=== PATIENT | male | born 1955 | race Caucasian/White ===

== ENCOUNTER 2019-03-14 23:26 | Inpatient (IN) | payer MEDICARE ==
--- NOTE | 2019-03-15 00:33 | ED Physician Chart ---
ED Chief Complaint/HPI - Patient Information Date Seen:: 03/15/19 Time Seen:: 00:27 Chief Complaint:: insomnia History of Present Illness:: 63 yr old male from [facility] who does not like his retirement becuse the tian with him in the room is noisy and he can not get enough sleep Vitals:: Vital Signs - 8 hr 03/14/19 23:31 Temp 97 F HR 108 RR 18 BP 132/84 O2 Sat % 93 ED Review of Systems - Review of Systems General/Constitutional: No fever, No chills, No weight loss, No weakness, No diaphoresis, No edema, No loss of appetite Skin: No skin lesions, No rash, No bruising Head: No headache, No light-headedness Eyes: No loss of vision, No pain, No diplopia ENT: No earache, No nasal drainage, No sore throat, No tinnitus Neck: No neck pain, No swelling, No thyromegaly, No stiffness, No mass noted Cardio Vascular: No chest pain, No palpitations, No PND, No orthopnea, No edema Pulmonary: No SOB, No cough, No sputum, No wheezing GI: No nausea, No vomiting, No diarrhea, No pain, No melena, No hematochezia, No constipation, No hematemesis G/U: No dysuria, No frequency, No hematuria Musculoskeletal: No bone or joint pain, No back pain, No muscle pain Endocrine: No polyuria, No polydipsia Psychiatric: No prior psych history, No depression, No anxiety, No suicidal ideation Hematopoietic: No bruising, No lymphadenopathy Allergic/Immuno: No urticaria, No angioedema Neurological: No syncope, No focal symptoms, No weakness, No paresthesia, No headache, No seizure, No dizziness, No confusion, No vertigo ED Past Medical History - Past Medical History Past Medical History: HTN, Asthma/COPD, Other (cirrhosiscopd etoh and drug abuse ) ED Physical Exam - Physical Examination General/Constitutional: Awake, Well-developed, well-nourished, Alert, No distress, GCS 15, Non-toxic appearing, Ambulatory Head: Atraumatic Eyes: Lids, conjuctiva normal, PERRL, EOMI Skin: Nl inspection, No rash, No skin lesions, No ecchymosis, Well hydrated, No lymphadenopathy ENMT: External ears, nose nl, Nasal exam nl, Lips, teeth, gums nl Neck: Nontender, Full ROM w/o pain, No JVD, No nuchal rigidity, No bruit, No mass, No stridor Respiratory: Nl effort/Exclusion, Clear to Auscultation, No Wheeze/Rhonchi/Rales Cardio Vascular: RRR, No murmur, gallop, rubs, NL S1 S2 GI: No tenderness/rebounding/guarding, No organomegaly, No hernia, Normal BS's, Nondistended, No mass/bruits, No McBurney tenderness : No CVA tenderness Extremities: No tenderness or effusion, Full ROM, normal strength in all extremities, No edema, Normal digits & nails Neuro/Psych: Alert/oriented, DTR's symmetric, Normal sensory exam, Normal motor strength, Judgement/insight normal, Mood normal, Normal gait, No focal deficits Misc: Normal back, No paraspinal tenderness ED Labs/Radiology/EKG Results - Lab Results Results: retirement incompatibility ED Assessment - Assessment General Assessment: nsomnia agitation ED Septic Shock - . Is Septic Shock (SBP<90, OR Lactate>4 mmol\L) present?: No - <6hrs of presentation: Vital Signs: Vital Signs - 8 hr 03/14/19 23:31 Temp 97 F HR 108 RR 18 BP 132/84 O2 Sat % 93 ED Reassessment (Disposition) - Reassessment Reassessment:: insomnia agitation - Diagnosis Diagnosis:: as above - Patient Disposition Discharge/Transfer:: Acute Care w/in this hosp Condition at Disposition:: Stable
[2019-03-15 01:08] LABS: % LYMPHOCYTES 11.1 % (20.0-50.0); % MONOCYTES 8.5 % (2.0-10.0); % NEUTROPHILS 78.4 % (40.0-80.0); EOSINOPHILE ABSOLUTE 0.1 Th/cmm (0.1-0.4); HEMATOCRIT 42.5 % (41.0-60); HEMOGLOBIN 14.6 gm/dL (12-16); LYMPHOCYTE ABSOLUTE 0.5 Th/cmm (1.5-3.0); MEAN CELL VOLUME 88.7 fl (80-99); MEAN CORPUSCULAR HEMOGLOBIN 30.4 pg (26.0-30.0); MEAN CORPUSCULAR HGB CONC 34.3 pg (28.0-36.0); MONOCYTE ABSOLUTE 0.4 Th/cmm (0.3-1.0); NEUTROPHILE ABSOLUTE 3.9 Th/cmm (1.8-8.0); RED BLOOD COUNT 4.79 Mil/cmm (4.30-5.70); RED CELL DISTRIBUTION WIDTH 13.7 % (11.5-20.0); WHITE BLOOD COUNT 4.9 Th/cmm (4.8-10.8)
[2019-03-15 01:24] LABS: BUN - UREA NITROGEN 13 mg/dL (7-25); CALCIUM SERUM 9.7 mg/dL (8.6-10.3); CARBON DIOXIDE 29.1 mEq/L (21.0-31.0); CHLORIDE 100 mEq/L (98-107); CREATININE - SERUM 0.7 mg/dL (0.7-1.3); GFR AFRICAN-AMERICAN > 60.0 ml/min (>90); GFR NON AFRICAN-AMERICAN > 60.0 ml/min; GLUCOSE 166 mg/dL (70-105); POTASSIUM SERUM 4.1 mEq/L (3.5-5.1); SODIUM SERUM 133 mEq/L (136-145)
[2019-03-15 01:32] LABS: PLATELET COUNT 42 Th/cmm (150-400)
[2019-03-15] MEDS ORDERED: Albuterol Nebulizer 2.5mg/3mL HHN PRN (02:32)
[2019-03-15 03:27] VITALS: BP 131/81
--- NOTE | 2019-03-15 18:10 | Consultation ---
DATE OF CONSULTATION: 03/15/2019 HEMATOLOGY/ ONCOLOGY CONSULTATION REFERRING PHYSICIAN: Dr. Del Toro. REASON FOR CONSULTATION: Thrombocytopenia. HISTORY OF PRESENT ILLNESS: The patient is a 63-year-old male who resides in a nursing facility. He was admitted and found to have low platelet count 42,000, therefore, I was asked to evaluate. There are no old records in the hospital to compare with from the past. PAST MEDICAL HISTORY: Hypertension, COPD, asthma, liver cirrhosis and alcohol abuse. PAST SURGICAL HISTORY: Cataract surgery. MEDICATIONS: Albuterol, Lotensin, lithium, quetiapine and Zoloft. PHYSICAL EXAMINATION: GENERAL: The patient is awake, conversing and cooperative. VITAL SIGNS: Temperature 98 and blood pressure 120/71. HEENT: Atraumatic. NECK: Supple. CHEST: Clear. ABDOMEN: Obese, soft, no organomegaly or ascites. EXTREMITIES: No edema. NERVOUS SYSTEM: Moves four extremities. LABORATORY DATA: Creatinine 0.7. Liver functions are not available. White count is 4.9, platelets 42 and hemoglobin 14.6. ASSESSMENT: Thrombocytopenia of unknown duration. Based on the patient's history, this may be secondary to cirrhosis or splenomegaly. I will obtain abdominal ultrasound. I will obtain liver functions and follow the platelet count and coagulation panel. No need for transfusion since there is no evidence of bleeding. Thank you Dr. Del Toro for the opportunity to participate in the care of this interesting case. JOB# [id number]
--- NOTE | 2019-03-15 18:47 | History & Physical ---
ADMIT DATE: 03/15/2019 CHIEF COMPLAINT: Insomnia. HISTORY OF PRESENT ILLNESS: This is a 63-year-old male who is admitted to the med-surg unit with a 1-day history of increase of weakness and thrombocytopenia. The patient denies any fevers, chills, night sweats or weight loss at home. PAST MEDICAL HISTORY: Hypertension, COPD, cirrhosis, ETOH, drug abuse. SOCIAL HISTORY: The patient is an alcoholic and history of drug abuse. PAST SURGICAL HISTORY: The patient states he does not remember. REVIEW OF SYSTEMS: GENERAL: Denies any fever and chills. Complains of weakness. CARDIOVASCULAR: Denies chest pain. RESPIRATORY: Denies shortness of breath. GASTROINTESTINAL: Denies nausea, vomiting, abdominal pain. GENITOURINARY: Denies increased frequency or dysuria. NEUROLOGIC: No headaches, seizures or syncope. All systems reviewed and negative. PHYSICAL EXAMINATION: GENERAL: Elderly male, awake, alert, in no apparent distress. VITAL SIGNS: Temperature 98.0, heart rate 65, blood pressure 118/71, respirations 18, O2 96%. HEENT: Head; normocephalic, atraumatic. NECK: Supple. No mass. LUNGS: Clear bilaterally. HEART: Regular rate and rhythm. ABDOMEN: Soft, nontender. LABORATORY DATA: WBC 4.9, H and H 14.6 and 42.5, platelet of 42. Sodium 133, potassium 4.1, chloride 100, BUN 13, creatinine 0.7. ASSESSMENT: Thrombocytopenia, hypertension, asthma, chronic obstructive pulmonary disease, liver cirrhosis, history of alcohol abuse and drug abuse. PLAN: We will get Psychiatry on the case as well as Hematology. Keep the patient on IV fluids for hydration. We will continue to monitor this patient. JOB# [id number]
[2019-03-15] MEDS: D5-0.45NS 1,000 ML IV SCH (22:00)
[2019-03-16 05:27] LABS: % BASOPHILS 1.1 % (0.0-2.0); % LYMPHOCYTES 14.1 % (20.0-50.0); % MONOCYTES 6.1 % (2.0-10.0); % NEUTROPHILS 75.7 % (40.0-80.0); BASOPHILE ABSOLUTE 0.1 Th/cumm (0-0.2); EOSINOPHILE ABSOLUTE 0.1 Th/cmm (0.1-0.4); HEMATOCRIT 44.1 % (41.0-60); HEMOGLOBIN 14.8 gm/dL (12-16); LYMPHOCYTE ABSOLUTE 0.6 Th/cmm (1.5-3.0); MEAN CELL VOLUME 89.8 fl (80-99); MEAN CORPUSCULAR HEMOGLOBIN 30.2 pg (26.0-30.0); MEAN CORPUSCULAR HGB CONC 33.7 pg (28.0-36.0); MONOCYTE ABSOLUTE 0.3 Th/cmm (0.3-1.0); NEUTROPHILE ABSOLUTE 3.5 Th/cmm (1.8-8.0); RED BLOOD COUNT 4.91 Mil/cmm (4.30-5.70); RED CELL DISTRIBUTION WIDTH 13.7 % (11.5-20.0); WHITE BLOOD COUNT 4.6 Th/cmm (4.8-10.8)
[2019-03-16 05:37] LABS: INR 1.18 (0.5-1.4)
[2019-03-16 05:45] LABS: ALB/GLOB RATIO 0.9 (1.0-1.8); ALBUMIN 3.3 gm/dL (4.2-5.5); ALKALINE PHOSPHATASE 97 U/L (34-104); ANION GAP 8.1 (7.0-16.0); BILIRUBIN,DIRECT 0.34 mg/dL (0.0-0.2); BILIRUBIN,TOTAL 1.1 mg/dL (0.3-1.0); BUN - UREA NITROGEN 11 mg/dL (7-25); CALCIUM SERUM 9.1 mg/dL (8.6-10.3); CHLORIDE 100 mEq/L (98-107); CREATININE - SERUM 0.6 mg/dL (0.7-1.3); GFR AFRICAN-AMERICAN > 60.0 ml/min (>90); GFR NON AFRICAN-AMERICAN > 60.0 ml/min; GLUCOSE 132 mg/dL (70-105); POTASSIUM SERUM 4.1 mEq/L (3.5-5.1); SGOT 74 U/L (13-39); SGPT/ALT 66 U/L (7-52); SODIUM SERUM 133 mEq/L (136-145)
[2019-03-16 06:02] LABS: PLATELET COUNT 42 Th/cmm (150-400)
[2019-03-16] MEDS: D5-0.45NS 1,000 ML IV SCH ×2 (07:27→07:28)
--- NOTE | 2019-03-16 07:50 | Consultation ---
DATE OF CONSULTATION: PSYCHIATRIC CONSULTATION PATIENT'S AGE: 63. SEX: Male. PHYSICIAN: Dr. Small. CHIEF COMPLAINT: Generalized weakness. HISTORY OF PRESENT ILLNESS: The patient is a 63-year-old male who was admitted to the hospital because of generalized weakness. The patient admitted under the care of Dr. Del Toro. Chart was reviewed and the patient interviewed. The patient is calm and cooperative. He denies any mood swings. Also, not agitated and not irritable. He also is denying any intention to harm himself or others. The patient has been taking lithium and Seroquel. PAST PSYCHIATRIC HISTORY: The patient has history of bipolar disorder. PAST MEDICAL HISTORY: The patient was admitted to the hospital because of generalized weakness. SOCIAL HISTORY: The patient is single, never . [facility] MENTAL STATUS EXAM: The patient appears his stated age. Calm. Cooperative. Thought processes are mainly goal directed. The patient denies hallucinations or delusions. Denies any suicidal or homicidal ideations. The patient is alert and oriented to time, place, person, and situation. Intact immediate, recent and remote memories. ASSESSMENT: PRIMARY DIAGNOSIS: Bipolar disorder, depressed episode, without psychotic features. TREATMENT PLAN: We will decrease Seroquel to 25 mg at bedtime. We will get lithium blood level stat. We will also monitor behavior. Thanks Dr. Del Toro and we will follow up with you. JOB# [id number]
--- NOTE | 2019-03-16 12:23 | Diagnostic Imaging Report ---
Ultrasound abdomen HISTORY: Splenomegaly COMPARISON: None Technique: Sonography of the abdomen was performed in multiple planes. FINDINGS: The liver demonstrates heterogeneous echotexture with slightly irregular borders. No discrete focal lesions. The liver measures 16.5 cm. Gallstones are noted. The gallbladder wall measures 3 mm. The common bile measures 5 mm.. The common bile duct measures 4 mm. Evaluation of the pancreas is limited due to bowel gas. The right kidney measures 11.8 x 5.8 cm. No evidence of focal lesions or hydronephrosis. The left kidney measures 11.8 x 5 cm. No evidence of focal lesions or hydronephrosis. The spleen measures 18.5 x 18 cm. The visualized portions of the abdominal aorta within normal limits in size. IMPRESSION: Splenomegaly with spleen measuring 18.5 x 8 cm. Correlate clinically. Borderline prominent liver with irregular borders and heterogeneous appearance which may be due to cirrhotic changes, correlate clinically. Cholelithiasis. Borderline prominent gallbladder wall is noted, nonspecific. No gallbladder wall thickening or pericholecystic fluid.
--- NOTE | 2019-03-16 14:00 | Internal Medicine Prog Note ---
Internal Medicine Subjective - Subjective Service Date: 03/16/19 Patient seen and examined:: with staff Patient is:: awake, verbal Patient Complaints of:: other (weakness.) Per staff patient has:: no adverse event, no episodes of fall (3) Internal Medicine Objective - Results Result Diagrams: 03/16/19 05:15 03/16/19 05:15 Recent Labs: Laboratory Last Values WBC 4.6 Th/cmm (4.8-10.8) L 03/16/19 05:15 RBC 4.91 Mil/cmm (4.30-5.70) 03/16/19 05:15 Hgb 14.8 gm/dL (12-16) 03/16/19 05:15 Hct 44.1 % (41.0-60) 03/16/19 05:15 MCV 89.8 fl (80-99) 03/16/19 05:15 MCH 30.2 pg (26.0-30.0) H 03/16/19 05:15 MCHC Differential 33.7 pg (28.0-36.0) 03/16/19 05:15 RDW 13.7 % (11.5-20.0) 03/16/19 05:15 Plt Count 42 Th/cmm (150-400) L 03/16/19 05:15 MPV 8.1 fl 03/16/19 05:15 Neutrophils % 75.7 % (40.0-80.0) 03/16/19 05:15 Lymphocytes % 14.1 % (20.0-50.0) L 03/16/19 05:15 Monocytes % 6.1 % (2.0-10.0) 03/16/19 05:15 Eosinophils % 3.0 % (0.0-5.0) 03/16/19 05:15 Basophils % 1.1 % (0.0-2.0) 03/16/19 05:15 PT 12.2 SECONDS (9.5-11.5) H 03/16/19 05:15 INR 1.18 (0.5-1.4) 03/16/19 05:15 PTT (Actin FS) 34.6 SECONDS (26.0-38.0) 03/16/19 05:15 Sodium 133 mEq/L (136-145) L 03/16/19 05:15 Potassium 4.1 mEq/L (3.5-5.1) 03/16/19 05:15 Chloride 100 mEq/L (98-107) 03/16/19 05:15 Carbon Dioxide 29.0 mEq/L (21.0-31.0) 03/16/19 05:15 Anion Gap 8.1 (7.0-16.0) 03/16/19 05:15 BUN 11 mg/dL (7-25) 03/16/19 05:15 Creatinine 0.6 mg/dL (0.7-1.3) L 03/16/19 05:15 Est GFR ( Amer) > 60.0 ml/min (>90) 03/16/19 05:15 Est GFR (Non-Af Amer) > 60.0 ml/min 03/16/19 05:15 BUN/Creatinine Ratio 18.3 03/16/19 05:15 Glucose 132 mg/dL (70-105) H 03/16/19 05:15 Calcium 9.1 mg/dL (8.6-10.3) 03/16/19 05:15 Total Bilirubin 1.1 mg/dL (0.3-1.0) H 03/16/19 05:15 Direct Bilirubin 0.34 mg/dL (0.0-0.2) H 03/16/19 05:15 AST 74 U/L (13-39) H 03/16/19 05:15 ALT 66 U/L (7-52) H 03/16/19 05:15 Alkaline Phosphatase 97 U/L (34-104) 03/16/19 05:15 Total Protein 7.0 gm/dL (6.0-8.3) 03/16/19 05:15 Albumin 3.3 gm/dL (4.2-5.5) L 03/16/19 05:15 Globulin 3.7 gm/dL 03/16/19 05:15 Albumin/Globulin Ratio 0.9 (1.0-1.8) L 03/16/19 05:15 - Physical Exam Vitals and I&O: Vital Signs Temp 97.0 F 03/16/19 12:00 Pulse 86 03/16/19 12:00 Resp 20 03/16/19 12:00 BP 112/82 03/16/19 12:00 Pulse Ox 99 03/16/19 12:00 Intake & Output 03/15/19 03/16/19 03/16/19 18:59 06:59 18:59 Intake Total 725 800 710.00 Balance 725 800 710.00 Weight (lbs) 99.337 kg 102.92 kg Intake: Intake, IV Amount 710.00 D5-0.45NS 1,000 ml @ 75 710.00 mls/hr IV .[id number] RUBI Rx #:[id number] Oral 725 800 Other: # Voids 3 3 # Bowel Movements 1 Weight Source Bedscale Bedscale Active Medications: Current Medications Albuterol Sulfate (Albuterol 2.5mg/3ml Neb Ud) 2.5 mg HHN Q4H PRN PRN Reason: Shortness of Breath Stop: 05/14/19 02:31 Benazepril HCl (Lotensin) 20 mg PO DAILY RUBI Stop: 05/15/19 08:59 Last Admin: 03/16/19 08:00 Dose: Not Given Dextrose/Sodium Chloride (D5-0.45ns) 1,000 mls @ 75 mls/hr IV .[id number] RUBI Stop: 05/14/19 02:31 Last Admin: 03/16/19 07:28 Dose: 75 mls/hr [place] Carbonate (Eskalith) 300 mg PO DAILY RUBI; Protocol Stop: 05/15/19 08:59 Quetiapine Fumarate (Seroquel) 25 mg PO HS RUBI; Protocol Stop: 05/15/19 20:59 Sertraline HCl (Zoloft) 50 mg PO DAILY RUBI; Protocol Stop: 05/15/19 08:59 Physical Exam: Patient is awake, cooperative, communicative. General: weak HEENT: NC/AT Neck: Supple Lungs: CTAB Cardiovascular: RRR, Normal S1 Abdomen: soft, non-tender Extremities: clear Neurological: no change Internal Medicine Assmt/Plan - Assessment Assessment: Thrombocytopenia. Secondary to Liver cirrhosis or Splenomeglaly. Hx of Alcohol abuse. Hypertension. Copd. Asthma. - Plan Plan: Continuation of care. Monitor Labs. Continue present meds as directed. Monitor vitals, Continue BP meds as directed. Accu-check daily, Continue DM meds as directed. Respiratory treatments and Pulmonary support prn. Supplemental Oxygen prn. Aspiration precaution. Deep suctioning prn. Monitor Diet/Nutritional support. Pain Management. Physical therapy/Occupational therapy prn. Fall precaution, frequent nursing rounds, and as needed restraints to prevent fall. Safety precaution. Supportive care. Continue collaborating with consulting specialists, case management and nursing team. Will Monitor patient and continue present care management. Nutritional Asmnt/Malnutr-PDOC - Dietary Evaluation Malnutrition Findings (Please click <Entered> for more info): see orders.
[2019-03-17] MEDS: D5-0.45NS 1,000 ML IV SCH ×2 (03:04→10:08)
--- NOTE | 2019-03-17 11:07 | General Progress Note ---
Subjective - Review of Systems Service Date: 03/17/19 Subjective: feels better Objective - Results Result Diagrams: 03/16/19 05:15 03/16/19 05:15 Recent Labs: Laboratory Last Values WBC 4.6 Th/cmm (4.8-10.8) L 03/16/19 05:15 RBC 4.91 Mil/cmm (4.30-5.70) 03/16/19 05:15 Hgb 14.8 gm/dL (12-16) 03/16/19 05:15 Hct 44.1 % (41.0-60) 03/16/19 05:15 MCV 89.8 fl (80-99) 03/16/19 05:15 MCH 30.2 pg (26.0-30.0) H 03/16/19 05:15 MCHC Differential 33.7 pg (28.0-36.0) 03/16/19 05:15 RDW 13.7 % (11.5-20.0) 03/16/19 05:15 Plt Count 42 Th/cmm (150-400) L 03/16/19 05:15 MPV 8.1 fl 03/16/19 05:15 Neutrophils % 75.7 % (40.0-80.0) 03/16/19 05:15 Lymphocytes % 14.1 % (20.0-50.0) L 03/16/19 05:15 Monocytes % 6.1 % (2.0-10.0) 03/16/19 05:15 Eosinophils % 3.0 % (0.0-5.0) 03/16/19 05:15 Basophils % 1.1 % (0.0-2.0) 03/16/19 05:15 PT 12.2 SECONDS (9.5-11.5) H 03/16/19 05:15 INR 1.18 (0.5-1.4) 03/16/19 05:15 PTT (Actin FS) 34.6 SECONDS (26.0-38.0) 03/16/19 05:15 Sodium 133 mEq/L (136-145) L 03/16/19 05:15 Potassium 4.1 mEq/L (3.5-5.1) 03/16/19 05:15 Chloride 100 mEq/L (98-107) 03/16/19 05:15 Carbon Dioxide 29.0 mEq/L (21.0-31.0) 03/16/19 05:15 Anion Gap 8.1 (7.0-16.0) 03/16/19 05:15 BUN 11 mg/dL (7-25) 03/16/19 05:15 Creatinine 0.6 mg/dL (0.7-1.3) L 03/16/19 05:15 Est GFR ( Amer) > 60.0 ml/min (>90) 03/16/19 05:15 Est GFR (Non-Af Amer) > 60.0 ml/min 03/16/19 05:15 BUN/Creatinine Ratio 18.3 03/16/19 05:15 Glucose 132 mg/dL (70-105) H 03/16/19 05:15 Calcium 9.1 mg/dL (8.6-10.3) 03/16/19 05:15 Total Bilirubin 1.1 mg/dL (0.3-1.0) H 03/16/19 05:15 Direct Bilirubin 0.34 mg/dL (0.0-0.2) H 03/16/19 05:15 AST 74 U/L (13-39) H 03/16/19 05:15 ALT 66 U/L (7-52) H 03/16/19 05:15 Alkaline Phosphatase 97 U/L (34-104) 03/16/19 05:15 Total Protein 7.0 gm/dL (6.0-8.3) 03/16/19 05:15 Albumin 3.3 gm/dL (4.2-5.5) L 03/16/19 05:15 Globulin 3.7 gm/dL 03/16/19 05:15 Albumin/Globulin Ratio 0.9 (1.0-1.8) L 03/16/19 05:15 Myrtle < 0.20 mmol/L (0.5-1.0) L 03/16/19 05:15 - Physical Exam Vitals and I&O: Vital Signs Temp 97.8 F 03/17/19 08:00 Pulse 79 03/17/19 09:10 Resp 18 03/17/19 08:23 BP 146/78 03/17/19 09:10 Pulse Ox 94 03/17/19 08:23 Intake & Output 03/16/19 03/17/19 03/17/19 18:59 06:59 18:59 Intake Total 1210.00 1000 Balance 1210.00 1000 Weight (lbs) 102.92 kg Intake: Intake, IV Amount 710.00 1000 D5-0.45NS 1,000 ml @ 75 710.00 1000 mls/hr IV .[id number] RUBI Rx #:[id number] Oral 500 Other: # Voids 2 # Bowel Movements 1 Weight Source Bedscale Active Medications: Current Medications Albuterol Sulfate (Albuterol 2.5mg/3ml Neb Ud) 2.5 mg HHN Q4H PRN PRN Reason: Shortness of Breath Stop: 05/14/19 02:31 Benazepril HCl (Lotensin) 20 mg PO DAILY RUBI Stop: 05/15/19 08:59 Last Admin: 03/17/19 09:10 Dose: 20 mg Dextrose/Sodium Chloride (D5-0.45ns) 1,000 mls @ 75 mls/hr IV .[id number] RUBI Stop: 05/14/19 02:31 Last Admin: 03/17/19 10:08 Dose: Not Given [place]rtle Carbonate (Eskalith) 300 mg PO DAILY RUBI; Protocol Stop: 05/15/19 08:59 Last Admin: 03/17/19 09:11 Dose: 300 mg Quetiapine Fumarate (Seroquel) 25 mg PO HS RUBI; Protocol Stop: 05/15/19 20:59 Last Admin: 03/17/19 08:29 Dose: Not Given Sertraline HCl (Zoloft) 50 mg PO DAILY RUBI; Protocol Stop: 05/15/19 08:59 Last Admin: 03/17/19 09:10 Dose: 50 mg Assessment/Plan - Assessment Assessment: Thrombocytopenia of unknown duration. Based on the patient's history, this may be secondary to cirrhosis or splenomegaly. I will obtain abdominal ultrasound. I will obtain liver functions and follow the platelet count and coagulation panel. No need for transfusion since there is no evidence of bleeding. 03/17: spleen 18.5 cm, cirrhotic liver. Low plt sec to splenic sequestration. Platelets stable, no bleeding.
--- NOTE | 2019-03-17 11:31 | Internal Medicine Prog Note ---
Internal Medicine Subjective - Subjective Service Date: 03/17/19 Patient is:: awake, verbal Patient Complaints of:: other (weakness.) Per staff patient has:: no adverse event, no episodes of fall (3) Internal Medicine Objective - Results Result Diagrams: 03/16/19 05:15 03/16/19 05:15 Recent Labs: Laboratory Last Values WBC 4.6 Th/cmm (4.8-10.8) L 03/16/19 05:15 RBC 4.91 Mil/cmm (4.30-5.70) 03/16/19 05:15 Hgb 14.8 gm/dL (12-16) 03/16/19 05:15 Hct 44.1 % (41.0-60) 03/16/19 05:15 MCV 89.8 fl (80-99) 03/16/19 05:15 MCH 30.2 pg (26.0-30.0) H 03/16/19 05:15 MCHC Differential 33.7 pg (28.0-36.0) 03/16/19 05:15 RDW 13.7 % (11.5-20.0) 03/16/19 05:15 Plt Count 42 Th/cmm (150-400) L 03/16/19 05:15 MPV 8.1 fl 03/16/19 05:15 Neutrophils % 75.7 % (40.0-80.0) 03/16/19 05:15 Lymphocytes % 14.1 % (20.0-50.0) L 03/16/19 05:15 Monocytes % 6.1 % (2.0-10.0) 03/16/19 05:15 Eosinophils % 3.0 % (0.0-5.0) 03/16/19 05:15 Basophils % 1.1 % (0.0-2.0) 03/16/19 05:15 PT 12.2 SECONDS (9.5-11.5) H 03/16/19 05:15 INR 1.18 (0.5-1.4) 03/16/19 05:15 PTT (Actin FS) 34.6 SECONDS (26.0-38.0) 03/16/19 05:15 Sodium 133 mEq/L (136-145) L 03/16/19 05:15 Potassium 4.1 mEq/L (3.5-5.1) 03/16/19 05:15 Chloride 100 mEq/L (98-107) 03/16/19 05:15 Carbon Dioxide 29.0 mEq/L (21.0-31.0) 03/16/19 05:15 Anion Gap 8.1 (7.0-16.0) 03/16/19 05:15 BUN 11 mg/dL (7-25) 03/16/19 05:15 Creatinine 0.6 mg/dL (0.7-1.3) L 03/16/19 05:15 Est GFR ( Amer) > 60.0 ml/min (>90) 03/16/19 05:15 Est GFR (Non-Af Amer) > 60.0 ml/min 03/16/19 05:15 BUN/Creatinine Ratio 18.3 03/16/19 05:15 Glucose 132 mg/dL (70-105) H 03/16/19 05:15 Calcium 9.1 mg/dL (8.6-10.3) 03/16/19 05:15 Total Bilirubin 1.1 mg/dL (0.3-1.0) H 03/16/19 05:15 Direct Bilirubin 0.34 mg/dL (0.0-0.2) H 03/16/19 05:15 AST 74 U/L (13-39) H 03/16/19 05:15 ALT 66 U/L (7-52) H 03/16/19 05:15 Alkaline Phosphatase 97 U/L (34-104) 03/16/19 05:15 Total Protein 7.0 gm/dL (6.0-8.3) 03/16/19 05:15 Albumin 3.3 gm/dL (4.2-5.5) L 03/16/19 05:15 Globulin 3.7 gm/dL 03/16/19 05:15 Albumin/Globulin Ratio 0.9 (1.0-1.8) L 03/16/19 05:15 Kim < 0.20 mmol/L (0.5-1.0) L 03/16/19 05:15 - Physical Exam Vitals and I&O: Vital Signs Temp 97.8 F 03/17/19 08:00 Pulse 79 03/17/19 09:10 Resp 18 03/17/19 08:23 BP 146/78 03/17/19 09:10 Pulse Ox 94 03/17/19 08:23 Intake & Output 03/16/19 03/17/19 03/17/19 18:59 06:59 18:59 Intake Total 1210.00 1000 Balance 1210.00 1000 Weight (lbs) 226 lb 14.4 oz Intake: Intake, IV Amount 710.00 1000 D5-0.45NS 1,000 ml @ 75 710.00 1000 mls/hr IV .[id number] RUBI Rx #:[id number] Oral 500 Other: # Voids 2 # Bowel Movements 1 Weight Source Bedscale Active Medications: Current Medications Albuterol Sulfate (Albuterol 2.5mg/3ml Neb Ud) 2.5 mg HHN Q4H PRN PRN Reason: Shortness of Breath Stop: 05/14/19 02:31 Benazepril HCl (Lotensin) 20 mg PO DAILY RUBI Stop: 05/15/19 08:59 Last Admin: 03/17/19 09:10 Dose: 20 mg Dextrose/Sodium Chloride (D5-0.45ns) 1,000 mls @ 75 mls/hr IV .[id number] RUBI Stop: 05/14/19 02:31 Last Admin: 03/17/19 10:08 Dose: Not Given Kim Carbonate (Eskalith) 300 mg PO DAILY RUBI; Protocol Stop: 05/15/19 08:59 Last Admin: 03/17/19 09:11 Dose: 300 mg Quetiapine Fumarate (Seroquel) 25 mg PO HS RUBI; Protocol Stop: 05/15/19 20:59 Last Admin: 03/17/19 08:29 Dose: Not Given Sertraline HCl (Zoloft) 50 mg PO DAILY RUBI; Protocol Stop: 05/15/19 08:59 Last Admin: 03/17/19 09:10 Dose: 50 mg General: weak HEENT: NC/AT Neck: Supple Lungs: CTAB Cardiovascular: RRR, Normal S1 Abdomen: soft, non-tender Extremities: clear Neurological: no change Internal Medicine Assmt/Plan - Assessment Assessment: Thrombocytopenia. Secondary to Liver cirrhosis or Splenomeglaly. Hx of Alcohol abuse. Hypertension. Copd. Asthma. - Plan Plan: dc today
--- NOTE | 2019-03-24 10:26 | Discharge Summary ---
General Discharge Summary - Discharge Summary Date of Admission: 03/15/19 Admitting Diagnosis: Thrombocytopenia, Hypertension, Asthma, Copd, Liver cirrhosis. Discharge Date: 03/17/19 Discharge Diagnosis: Hypertension, Copd, Cirrhosis, ETOH, History of Drug Abuse , Thrombocytopenia, Asthma and General weakness. Laboratory Findings: Thrombocytopenia. Hospital Course: Patient was admitted to: Med/Surg for the following evaluations and treatment. Hospital Course and Treatment Rendered: IV Hydration, Lab tests, Abdominal ultrasound, Supportive care, Pain management, Monitor vitals, Hematology consult, Psych consult and Internal Medicine consult. Adjustment of medication: Psych med. The course of hospitalization was uncomplicated and the course of the treatment was uneventful. CONSULT: Hematology consult, Psych consult and Internal Medicine consult. Diagnostic Study (ies): Abdominal ultrasound. Health Concerns: Hypertension-Stable. Copd-Stable. Cirrhosis-Treating. ETOH. History of Drug Abuse. Thrombocytopenia-Treated, Resolved. Asthma-Stable. General weakness-Treating, Improving. Assessment: Hypertension-Stable. Copd-Stable. Cirrhosis-Treating. ETOH. History of Drug Abuse. Thrombocytopenia-Treating. Asthma. General weakness. Plan of Treatment: Continue medications as prescribed. Patient discharged to [facility]. Activity: Resume normal activity as tolerated. Diet: Resume previous diet. Medications: Please see medication reconciliation sheet. I will Follow-up with patient within x 2 days. Discharge Instructions: Patient/Family instructed on diagnosis, follow-up, and diagnostic testing. Greater than 30 minutes was spent with patient on discharge. Care Plan Goals: Continue present care management. Condition at Discharge: Stable Disposition: Discharge/Transfered to SNF Home Medications: Home Medication Medication Instructions Recorded Type Acetaminophen [Tylenol] 03/15/19 History Benazepril [Lotensin] 1 tab PO DAILY 03/15/19 History [place] Carbonate [Eskalith] 1 cap PO DAILY 03/15/19 History Melatonin 1 tab PO HS 03/15/19 History Multivit-Min/FA/Lycopen/Lutein 03/15/19 History [Centrum Silver Men Tablet] Quetiapine Fumarate [Seroquel] 50 mg PO HS 03/15/19 History Sertraline [Zoloft] 50 mg PO DAILY 03/15/19 History Activity: As Tolerated Consults and Follow-Up: LEANDRO CHRISTIAN [Other] not on staff,PCP is [Primary Care Provider] - Consulting Speciality: Other Instructions: Thrombocytopenia, Prkm-bs-Tejv
== END 2019-03-17 11:55 | DRG 433 ==
LOC: ER 23:26 → MSI 03-15 02:50
PROVIDERS: ADMIT Internal Medicine; ATTEND Internal Medicine
DX: K74.60 Unspecified cirrhosis of liver (principal); E87.1 Hypo-osmolality and hyponatremia; I10 Essential (primary) hypertension; J44.9 Chronic obstructive pulmonary disease, unspecified; G47.00 Insomnia, unspecified; D69.6 Thrombocytopenia, unspecified
CPT/HCPCS: 36415-UA; 76700-TC; 80048-TC; 80076-TC; 80178-TC; 85025-TC; 85610-TC; 94640; 94760; J7030